=== PATIENT | female | born 1940 | race Caucasian/White ===

== ENCOUNTER 2018-11-21 08:30 | Outpatient (CLI) | payer MEDICARE, OTHER ==
[2018-11-21] MEDS ORDERED: AMLO-150 PO (09:07)
[2018-11-21] MEDS ORDERED: ESCI10TA PO (09:07)
[2018-11-21] MEDS ORDERED: LOVA20TA2 PO (09:07)
[2018-11-21] MEDS ORDERED: ASPI-496 PO (09:07)
[2018-11-21] MEDS ORDERED: VITA400C43 PO (09:07)
[2018-11-21] MEDS ORDERED: METO-95 PO (09:07)
[2018-11-21] MEDS ORDERED: MULT-717 PO (09:07)
[2018-11-21] MEDS ORDERED: HYDR-3245 PO (09:07)
[2018-11-21] MEDS ORDERED: CYAN1TAB29 PO (09:07)
[2018-11-21] MEDS ORDERED: TRIA1TAB5 PO (09:07)
[2018-11-21] MEDS ORDERED: CHOL10003 PO (09:07)
== END 2018-11-21 23:59 | disposition home or self-care (01) ==
LOC: STAR 08:30
PROVIDERS: ATTEND Surgery
DX: Z01.818 Encounter for other preprocedural examination (principal)
CPT/HCPCS: 93005

== ENCOUNTER 2018-11-28 08:21 | Inpatient (IN) | payer MEDICARE, OTHER ==
[~2018-11-28] VITALS: Ht 165.1 cm; Wt 88.0 kg
[~2018-11-28 08:21] MED LIST: AMLO-150 PO; ASPI-496 PO; CHOL10003 PO; CYAN1TAB29 PO; ESCI10TA PO; HYDR-3245 PO; LOVA20TA2 PO; METO-95 PO; MULT-717 PO; SUGAMMADEX 200 MG/2 ML IVPush ONE; TRIA1TAB5 PO; VITA400C43 PO
[2018-11-28] MEDS ORDERED: DIAZEPAM 5 MG TABLET PO ONE (09:00)
[2018-11-28] MEDS ORDERED: ACETAMINOPHEN 500 MG TABLET PO ONE (09:00)
[2018-11-28] MEDS ORDERED: OxyconTIN ER 10 MG TAB.ER PO ONE (09:00)
[2018-11-28] MEDS ORDERED: GABAPENTIN 300 MG CAPSULE PO ONE (09:00)
[2018-11-28] MEDS ORDERED: LACTATED RINGERS 1,000 ML IV SCH (09:07)
[2018-11-28 09:47] VITALS: BP 127/77
[2018-11-28] MEDS ORDERED: FENTANYL PF 250 MCG/5ML ONE (10:14)
[2018-11-28] MEDS ORDERED: MIDAZOLAM 1 MG/ML, 2ML ONE (10:14)
[2018-11-28] MEDS ORDERED: PHENYLEPHRINE 10 MG/ML ONE (10:56)
[2018-11-28] MEDS ORDERED: ONDANSETRON 2MG/ML, 2ML ONE ×2 (10:56→12:27)
[2018-11-28] MEDS ORDERED: DEXAMETHASONE 4 MG/ML, 5ML ONE (10:56)
[2018-11-28] MEDS ORDERED: CEFOTETAN PMX 2GM/50ML 50 ML ONE (11:12)
[2018-11-28] MEDS ORDERED: ALBUTEROL/IPRATROPIUM 2.5MG/0.5MG, 3 ML NPPB PRN (12:00)
[2018-11-28] MEDS ORDERED: SCOPOLAMINE PATCH, 1.5MG PATCH.TD72 TD PRN ×2 (12:00→14:00)
[2018-11-28] MEDS ORDERED: DIAZEPAM 5 MG/ML, 2ML IVPush PRN (12:00)
[2018-11-28] MEDS ORDERED: METOPROLOL 1 MG/ML, 5ML IV PRN (12:00)
[2018-11-28] MEDS ORDERED: hydrALAzine 20 MG/ML, 1ML IV PRN (12:00)
[2018-11-28] MEDS ORDERED: OXYcodone 5 MG/5 ML ORAL.SOL UDC PO PRN (12:00)
[2018-11-28] MEDS ORDERED: MIDAZOLAM 1 MG/ML, 2ML IV PRN (12:00)
[2018-11-28] MEDS ORDERED: PROMETHAZINE 25 MG/ML, 1ML IV PRN (12:00)
[2018-11-28] MEDS ORDERED: ONDANSETRON 2MG/ML, 2ML IV PRN (12:00)
[2018-11-28] MEDS ORDERED: ROCURONIUM 10MG/ML,5ML ONE (12:27)
[2018-11-28] MEDS ORDERED: GLYCOPYRROLATE 0.2MG/1ML, 5ML ONE (12:27)
[2018-11-28] MEDS ORDERED: NEOSTIGMINE 1 MG/ML, 10ML ONE (12:27)
[2018-11-28] MEDS ORDERED: SUCCINYLCHOLINE 20 MG/ML, 10ML ONE (12:27)
[2018-11-28] MEDS ORDERED: CEFAZOLIN 1,000 MG ONE (12:27)
[2018-11-28] MEDS ORDERED: PROPOFOL 10 MG/ML, 20ML ONE (12:27)
[2018-11-28] MEDS ORDERED: HYDROmorphone 1 MG/ML, 1ML ONE (12:47)
[2018-11-28] MEDS: HYDROmorphone 2 MG/ML, 1ML IVPush PRN ×2 (12:49→13:15)
[2018-11-28] MEDS: FENTANYL PF 100 MCG/2ML IV PRN ×2 (13:01→13:19)
[2018-11-28] MEDS ORDERED: OXYcodone 5 MG/5 ML ORAL.SOL UDC ONE (13:17)
[2018-11-28] MEDS ORDERED: MEPERIDINE/PF 25MG/ML,1ML ONE (13:25)
[2018-11-28] MEDS ORDERED: D5%-0.45NACL+KCL 20MEQ 1,000 ML IV SCH (13:59)
[2018-11-28] MEDS ORDERED: HYDROmorphone 1 MG/ML, 1ML IVPush PRN (14:00)
[2018-11-28] MEDS ORDERED: DIPHENHYDRAMINE 50 MG/ML, 1ML IVPush PRN (14:00)
[2018-11-28] MEDS ORDERED: ENOXAPARIN 40 MG/0.4 ML SQ SCH (14:00)
[2018-11-28] MEDS ORDERED: CALCIUM CARBONATE 500 MG TAB.CHEW PO PRN (14:00)
[2018-11-28] MEDS ORDERED: LORazepam 2 MG/ML, 1ML IVPush PRN (14:00)
[2018-11-28] MEDS ORDERED: DIPHENHYDRAMINE 25 MG CAPSULE PO PRN (14:00)
[2018-11-28] MEDS ORDERED: ONDANSETRON 2MG/ML, 2ML IVPush PRN (14:00)
[2018-11-28] MEDS ORDERED: DEXAMETHASONE 4 MG/ML, 1ML IVPush PRN (14:00)
[2018-11-28] MEDS ORDERED: MEPERIDINE/PF 25MG/0.5ML IVPush ONE (14:30)
[2018-11-28] MEDS: IBUPROFEN 800 MG TABLET PO SCH ×2 (16:54→21:21)
[2018-11-28] MEDS: ACETAMINOPHEN 100 ML IVPB SCH ×2 (16:54→23:42)
[2018-11-28 18:41] VITALS: BP 81/46
[2018-11-28] MEDS: OXYcodone IR 5MG TABLET PO PRN (21:21)
[2018-11-28] MEDS: LOVASTATIN 20 MG TABLET PO SCH (21:21)
[2018-11-29] VITALS (8 sets, daily range): BP systolic 86–101; BP diastolic 49–61
[2018-11-29] MEDS: METOPROLOL SUCCINATE 100 MG TAB.ER.24H PO SCH (05:06)
[2018-11-29] MEDS: ACETAMINOPHEN 100 ML IVPB SCH ×2 (05:07→11:59)
[2018-11-29] MEDS: OXYcodone IR 5MG TABLET PO PRN (05:07)
[2018-11-29] MEDS ORDERED: SODIUM CHLORIDE 0.9% 1,000ML IVBOLUS ONE (06:30)
[2018-11-29 06:42] LABS: BASOPHILS # (AUTO) 0.01 x10^3/uL (0-0.1); BASOPHILS % (AUTO) 0 % (0-1); EOSINOPHILS % (AUTO) 0 % (1-7); LYMPHOCYTES # (AUTO) 0.49 x10^3/uL (1-3.4); LYMPHOCYTES % (AUTO) 5 % (22-44); MD NO; MEAN CORPUSCULAR HGB CONC 34.5 g/dL (32.4-35.8); MEAN CORPUSCULAR VOLUME 92.7 fL (80-100); MEAN PLATELET VOLUME 7.9 fL (7.4-10.4); MONOCYTES # (AUTO) 0.59 x10^3/uL (0.2-0.8); MONOCYTES % (AUTO) 6 % (2-9); NEUTROPHILS # (AUTO) 9.01 x10^3/uL (1.8-6.8); NEUTROPHILS % (AUTO) 89 % (42-75); PLATELET COUNT 166 x10^3/uL (130-400); RED CELL DISTRIBUTION WIDTH 13.3 % (9.6-15.2)
[2018-11-29 06:53] LABS: ANION GAP 6 mmol/L (5-15); CALCIUM 8.3 mg/dL (8.5-10.1); CHLORIDE 105 mmol/L (98-107)
[2018-11-29] MEDS: IBUPROFEN 800 MG TABLET PO SCH ×3 (08:42→20:20)
[2018-11-29] MEDS: ESCITALOPRAM 10MG TABLET PO SCH (08:42)
[2018-11-29] MEDS ORDERED: ENOXAPARIN 30 MG/0.3 ML SQ SCH (14:00)
[2018-11-29] MEDS: LOVASTATIN 20 MG TABLET PO SCH (20:20)
[2018-11-30 00:29] VITALS: BP 112/68
[2018-11-30] MEDS: METOPROLOL SUCCINATE 100 MG TAB.ER.24H PO SCH (06:00)
[2018-11-30 06:13] VITALS: BP 93/54
[2018-11-30 07:10] VITALS: BP 107/66
[2018-11-30] MEDS: ESCITALOPRAM 10MG TABLET PO SCH (09:14)
[2018-11-30] MEDS: OXYcodone IR 5MG TABLET PO PRN (09:14)
[2018-11-30] MEDS: IBUPROFEN 800 MG TABLET PO SCH (09:14)
[2018-11-30] MEDS ORDERED: OXYC-302 PO (09:23)
[2018-11-30 09:33] LABS: BASOPHILS # (AUTO) 0.03 x10^3/uL (0-0.1); BASOPHILS % (AUTO) 0 % (0-1); EOSINOPHILS # (AUTO) 0.02 x10^3/uL (0-0.4); EOSINOPHILS % (AUTO) 0 % (1-7); LYMPHOCYTES # (AUTO) 1.28 x10^3/uL (1-3.4); LYMPHOCYTES % (AUTO) 11 % (22-44); MD NO; MEAN CORPUSCULAR HEMOGLOBIN 30.9 pg (27.0-34.8); MEAN CORPUSCULAR HGB CONC 33.3 g/dL (32.4-35.8); MEAN CORPUSCULAR VOLUME 92.8 fL (80-100); MEAN PLATELET VOLUME 8.1 fL (7.4-10.4); MONOCYTES # (AUTO) 0.78 x10^3/uL (0.2-0.8); MONOCYTES % (AUTO) 7 % (2-9); NEUTROPHILS # (AUTO) 9.61 x10^3/uL (1.8-6.8); NEUTROPHILS % (AUTO) 82 % (42-75); PLATELET COUNT 188 x10^3/uL (130-400); RED BLOOD COUNT 4.39 x10^6/uL (3.82-5.3); RED CELL DISTRIBUTION WIDTH 13.4 % (9.6-15.2)
[2018-11-30 09:41] LABS: ANION GAP 6 mmol/L (5-15); CALCIUM 8.5 mg/dL (8.5-10.1); CHLORIDE 111 mmol/L (98-107); CREATININE 1.13 mg/dL (0.55-1.02)
[2018-11-30 10:00] VITALS: BP 101/60
== END 2018-11-30 12:03 | disposition home or self-care (01) | DRG 330 ==
LOC: ORIP 08:21 → 4NOR 14:28 → DCLOUNGE 11-30 11:35
PROVIDERS: ADMIT Surgery; ATTEND Surgery
PROC: 3E0T3BZ Introduction of Anesthetic Agent into Peripheral Nerves and Plexi, Percutaneous Approach (ICD-10-PCS; 2018-11-28)
PROC: 0DTF4ZZ Resection of Right Large Intestine, Percutaneous Endoscopic Approach (ICD-10-PCS; principal; 2018-11-28 10:30)
DX: C18.0 Malignant neoplasm of cecum (principal); N17.9 Acute kidney failure, unspecified; E78.00 Pure hypercholesterolemia, unspecified; I10 Essential (primary) hypertension; M19.90 Unspecified osteoarthritis, unspecified site; F32.9 Major depressive disorder, single episode, unspecified; F11.21 Opioid dependence, in remission; G89.29 Other chronic pain; E66.01 Morbid (severe) obesity due to excess calories; I95.9 Hypotension, unspecified; Z68.32 Body mass index [BMI] 32.0-32.9, adult; Z88.8 Allergy status to other drugs, medicaments and biological substances; Z90.710 Acquired absence of both cervix and uterus; Z83.3 Family history of diabetes mellitus
CPT/HCPCS: 36415; 80048; 85025; 88307; G0378; J0131; J0690; J1100; J1170; J1650; J2175; J2250; J2405; J2704; J2710; J3010; J3490; J0330; J2370; J3480; J7030; J7120

== ENCOUNTER 2019-04-24 17:17 | Inpatient (IN) | payer MEDICARE, MEDICAID ==
[~2019-04-24] VITALS: Ht 165.1 cm; Wt 87.1 kg
[2019-04-25 13:10] VITALS: BP 125/78
== END 2019-04-25 16:25 | disposition home or self-care (01) | DRG 394 ==
LOC: ED 21:13 → INTOOBSV 21:32 → EDIP 21:32 → OBSVTOIN 21:32 → 3NW 22:25 → DCLOUNGE 04-25 16:05
PROVIDERS: ADMIT Internal Medicine; ATTEND Internal Medicine
DX: K63.1 Perforation of intestine (nontraumatic) (principal); K86.1 Other chronic pancreatitis; E78.5 Hyperlipidemia, unspecified; F32.9 Major depressive disorder, single episode, unspecified; G89.29 Other chronic pain; I12.9 Hypertensive chronic kidney disease with stage 1 through stage 4 chronic kidney disease, or unspecified chronic kidney disease; Z88.8 Allergy status to other drugs, medicaments and biological substances; Z82.49 Family history of ischemic heart disease and other diseases of the circulatory system; K59.03 Drug induced constipation; N18.9 Chronic kidney disease, unspecified; T40.2X5A Adverse effect of other opioids, initial encounter; Z79.891 Long term (current) use of opiate analgesic; Z85.038 Personal history of other malignant neoplasm of large intestine
CPT/HCPCS: 36415; 74021; 74177; 80053; 85025; 96365; 99285; G0378; J0295; J1644; Q9967; J7030

== ENCOUNTER 2019-04-29 11:51 | Outpatient (CLI) | payer MEDICARE, MEDICAID ==
[~2019-04-29 11:51] MED LIST changes: +AMOX1TAB64 PO; +OXYC-302 PO; -SUGAMMADEX 200 MG/2 ML IVPush ONE
[2019-04-29] MEDS ORDERED: OMNIPAQUE 350 MG/ML, 100ML BOTTLE ONE (13:15)
== END 2019-04-29 23:59 | disposition home or self-care (01) ==
LOC: RAD 11:51
PROVIDERS: ATTEND Surgery
DX: K86.9 Disease of pancreas, unspecified (principal); R10.9 Unspecified abdominal pain
CPT/HCPCS: 74177; Q9967